=== PATIENT | male | born 2000 | race American Indian/Alaskan Native ===

== ENCOUNTER 2020-12-05 14:29 | Emergency (ER) | payer SELFPAY ==
--- NOTE | 2020-12-05 19:15 | Emergency Department Report ---
ED General Adult HPI - General Chief complaint: Psych Stated complaint: CARLY EVAL Time Seen by Provider: 12/05/20 16:02 Source: EMS Mode of arrival: Stretcher Limitations: No Limitations - History of Present Illness Initial comments: The patient presents to the emergency department via EMS for a psychotic episode. Patient [place] talking to himself and became combative when approached by EMS. Patient was cooperative with coming to the hospital via EMS thus the patient was given 5 mg of Versed, 50 mg Benadryl, and 5 mg of Haldol. Per the patient's father the patient has had multiple episodes similar to this in the past especially within the last 8 to 12 months. -: unknown Severity scale (0 -10): 0 Consistency: constant Improves with: none Worsens with: none Associated Symptoms: denies other symptoms Treatments Prior to Arrival: none - Related Data Allergies Allergy/AdvReac Type Severity Reaction Status Date / Time No Known Allergies Allergy Unverified 12/05/20 15:00 ED Review of Systems ROS: Stated complaint: MH EVAL Other details as noted in HPI Comment: All other systems reviewed and negative Constitutional: denies: chills, fever Eyes: denies: eye pain, eye discharge, vision change ENT: denies: ear pain, throat pain Respiratory: denies: cough, shortness of breath, wheezing Cardiovascular: denies: chest pain, palpitations Endocrine: no symptoms reported Gastrointestinal: denies: abdominal pain, nausea, diarrhea Genitourinary: denies: urgency, dysuria Musculoskeletal: denies: back pain, joint swelling, arthralgia Skin: denies: rash, lesions Neurological: denies: headache, weakness, paresthesias Psychiatric: denies: anxiety, depression Hematological/Lymphatic: denies: easy bleeding, easy bruising ED Past Medical Hx - Past Medical History Previous Medical History?: No - Surgical History Past Surgical History?: No - Social History Smoking Status: Unknown if ever smoked ED Physical Exam - General Limitations: No Limitations General appearance: alert, in no apparent distress - Head Head exam: Present: atraumatic, normocephalic - Eye Eye exam: Present: normal appearance, PERRL, EOMI - ENT ENT exam: Present: mucous membranes moist - Neck Neck exam: Present: normal inspection - Respiratory Respiratory exam: Present: normal lung sounds bilaterally. Absent: respiratory distress - Cardiovascular Cardiovascular Exam: Present: regular rate, normal rhythm. Absent: systolic murmur, diastolic murmur, rubs, gallop - GI/Abdominal GI/Abdominal exam: Present: soft, normal bowel sounds - Rectal Rectal exam: Present: deferred - Extremities Exam Extremities exam: Present: normal inspection - Back Exam Back exam: Present: normal inspection - Neurological Exam Neurological exam: Present: alert, oriented X3, CN II-XII intact. Absent: motor sensory deficit - Psychiatric Psychiatric exam: Present: other (Patient is sedated via medications but upon sternal rub he wakes up and is nonsensical with his speech) - Skin Skin exam: Present: warm, dry, intact, normal color. Absent: rash ED Course Vital Signs 12/05/20 12/05/20 12/05/20 14:30 16:00 16:57 Temperature 98.6 F Pulse Rate 96 H Respiratory 18 Rate Blood Pressure 125/64 Blood Pressure [Right] O2 Sat by Pulse 100 99 77 L Oximetry 12/05/20 12/05/20 16:59 19:00 Temperature 98.3 F Pulse Rate 105 H Respiratory 18 Rate Blood Pressure 127/57 Blood Pressure 140/77 [Right] O2 Sat by Pulse 99 100 Oximetry ED Medical Decision Making - Lab Data Result diagrams: 12/05/20 18:26 12/05/20 18:26 Lab Results 12/05/20 12/05/20 12/05/20 Range/Units 18:26 18:26 18:26 WBC 7.8 (4.5-11.0) K/mm3 RBC 5.05 H (3.65-5.03) M/mm3 Hgb 14.6 (11.8-15.2) gm/dl Hct 43.7 (35.5-45.6) % MCV 87 (84-94) fl MCH 29 (28-32) pg MCHC 33 (32-34) % RDW 14.0 (13.2-15.2) % Plt Count 199 (140-440) K/mm3 Lymph % (Auto) 13.2 L (13.4-35.0) % [place] % (Auto) 8.5 H (0.0-7.3) % Eos % (Auto) 0.1 (0.0-4.3) % Baso % (Auto) 0.3 (0.0-1.8) % Lymph # (Auto) 1.0 L (1.2-5.4) K/mm3 [place] # (Auto) 0.7 (0.0-0.8) K/mm3 Eos # (Auto) 0.0 (0.0-0.4) K/mm3 Baso # (Auto) 0.0 (0.0-0.1) K/mm3 Seg Neutrophils % 77.9 H (40.0-70.0) % Seg Neutrophils # 6.1 (1.8-7.7) K/mm3 Sodium 137 (137-145) mmol/L Potassium 4.6 (3.6-5.0) mmol/L Chloride 99.3 (98-107) mmol/L Carbon Dioxide 21 L (22-30) mmol/L Anion Gap 21 mmol/L BUN 21 H (9-20) mg/dL Creatinine 1.4 H (0.8-1.3) mg/dL Estimated GFR > 60 ml/min BUN/Creatinine Ratio 15 % Glucose 59 L (75-100) mg/dL Calcium 9.2 (8.4-10.2) mg/dL Total Bilirubin 0.70 (0.1-1.2) mg/dL AST 106 H (5-40) units/L ALT 53 (7-56) units/L Alkaline Phosphatase 58 (35-129) units/L Total Protein 7.5 (6.3-8.2) g/dL Albumin 4.8 (3.9-5) g/dL Albumin/Globulin Ratio 1.8 % Salicylates < 0.3 L (2.8-20.0) mg/dL Acetaminophen (10.0-30.0) ug/mL Plasma/Serum Alcohol (0-0.07) % 12/05/20 12/05/20 Range/Units 18:26 18:26 WBC (4.5-11.0) K/mm3 RBC (3.65-5.03) M/mm3 Hgb (11.8-15.2) gm/dl Hct (35.5-45.6) % MCV (84-94) fl MCH (28-32) pg MCHC (32-34) % RDW (13.2-15.2) % Plt Count (140-440) K/mm3 Lymph % (Auto) (13.4-35.0) % [place] % (Auto) (0.0-7.3) % Eos % (Auto) (0.0-4.3) % Baso % (Auto) (0.0-1.8) % Lymph # (Auto) (1.2-5.4) K/mm3 [place] # (Auto) (0.0-0.8) K/mm3 Eos # (Auto) (0.0-0.4) K/mm3 Baso # (Auto) (0.0-0.1) K/mm3 Seg Neutrophils % (40.0-70.0) % Seg Neutrophils # (1.8-7.7) K/mm3 Sodium (137-145) mmol/L Potassium (3.6-5.0) mmol/L Chloride (98-107) mmol/L Carbon Dioxide (22-30) mmol/L Anion Gap mmol/L BUN (9-20) mg/dL Creatinine (0.8-1.3) mg/dL Estimated GFR ml/min BUN/Creatinine Ratio % Glucose (75-100) mg/dL Calcium (8.4-10.2) mg/dL Total Bilirubin (0.1-1.2) mg/dL AST (5-40) units/L ALT (7-56) units/L Alkaline Phosphatase (35-129) units/L Total Protein (6.3-8.2) g/dL Albumin (3.9-5) g/dL Albumin/Globulin Ratio % Salicylates (2.8-20.0) mg/dL Acetaminophen 5.0 L (10.0-30.0) ug/mL Plasma/Serum Alcohol < 0.01 (0-0.07) % - Medical Decision Making 1013 applied Awaiting mental health evaluation Awaiting urinalysis for medical clearance Awaiting placement Critical care attestation.: If time is entered above; I have spent that time in minutes in the direct care of this critically ill patient, excluding procedure time. ED Disposition Clinical Impression: Psychosis Disposition: DC/TX-65 PSY HOSP/PSY UNIT Is pt being admited?: No Does the pt Need Aspirin: No Condition: Stable Referrals: PRIMARY CARE, [Primary Care Provider] - 3-5 Days
[2020-12-05 19:16] LABS: Alanine Aminotransferase 53 units/L (7-56); Albumin 4.8 g/dL (3.9-5); BUN/Creatinine Ratio 15; Blood Urea Nitrogen 21 mg/dL (9-20); Calcium 9.2 mg/dL (8.4-10.2); Hemolysis Index 2
[2020-12-05 19:35] LABS: Basophils % (Auto) 0.3 % (0.0-1.8); Eosinophils % (Auto) 0.1 % (0.0-4.3); Hematocrit 43.7 % (35.5-45.6); Hemoglobin 14.6 gm/dl (11.8-15.2); Lymphocytes % (Auto) 13.2 % (13.4-35.0); Mean Corpuscular HGB Conc 33 % (32-34); Mean Corpuscular Volume 87 fl (84-94); Monocytes # (Auto) 0.7 K/mm3 (0.0-0.8); Monocytes % (Auto) 8.5 % (0.0-7.3); Platelet Count 199 K/mm3 (140-440); Red Blood Count 5.05 M/mm3 (3.65-5.03)
[2020-12-05 22:58] LABS: Amphetamine Screen,Urine PRESUMPTIVE NEGATIVE; Benzodiazepines Screen,Urine PRESUMPTIVE POSITIVE; Cannabinoid Screen,Urine PRESUMPTIVE POSITIVE; Cocaine Screen,Urine PRESUMPTIVE NEGATIVE; Methadone Screen,Urine PRESUMPTIVE NEGATIVE; Opiate Screen,Urine PRESUMPTIVE NEGATIVE
[2020-12-05 22:59] LABS: Bilirubin,Urine NEG (Negative); Blood,Urine SM (Negative); Color,Urine Yellow (Yellow); Mucus,Urine 3+ /HPF; Urobilinogen,Urine < 2.0 mg/dL (<2.0)
--- NOTE | 2020-12-06 11:39 | Consultation ---
History of Present Illness - Reason for Consult Consult date: 12/06/20 Reason for consult: mental health evaluation - History of Present Psychiatric Illness ED Note: The patient presents to the emergency department via EMS for a psychotic episode. Patient was [place] talking to himself and became combative when approached by EMS. Patient was cooperative with coming to the hospital via EMS thus the patient was given 5 mg of Versed, 50 mg Benadryl, and 5 mg of Haldol. Per the patient's father the patient has had multiple episodes similar to this in the past especially within the last 8 to 12 months. Lukasz Pedroza is a 20 year old male with a history of psychosis and Schizophrenia. In my interview with the patient, he reports that was on his way to take his GED when he started talking and had a nervous breakdown.The patient reports recent stressor such as relationship issues. The patient presents with thought blocking, and paranoia, he was unable to state he was on any psychotropic medications. The patient endorse auditory/ visual hallucinations stating " I see dark figure of human and the voices are telling me to hurt myself and run." Diagnoses: schizophrenia, Psychosis Suicide attempts or Self-harm behavior:Denies Prior psychiatric hospitalizations: Yes Substance Abuse history: Denies Previous psychiatric medications tried: Unknown Outpatient treatment: Denies PAST MEDICAL HISTORY: None reported Family Psychiatric History: None reported or documented SOCIAL HISTORY Marital Status: single Living Arrangements: with room mate Employment Status: unemployed Access to guns/weapons: Denies Education: 11th grade History of Abuse: none reported Legal History: none reported REVIEW OF SYSTEMS Constitutional: Negative for weight loss ENT: Negative for stridor Respiratory: Negative for cough or hemoptysis All other systems reviewed and are negative MENTAL STATUS EXAMINATION General Appearance and Behavior: Age appropriate, good hygiene, wearing appropriate clothes, cooperative, cooperative Cooperation: Participating/engaged Psychomotor Behavior: normal Mood: OK Affect and affective range: congruent with stated mood Thought Process: logical Thought Content: Not SI Speech: Normal volume, Regular rate and rhythm Suicidal Ideation: Denies Homicidal Ideation: Denies Hallucinations:Yes Delusions: None elicited Impulse Control: impaired Insight and Judgment: limited insight and judgment, Memory: normal Attention: Normal Orientation: Alert, oriented Assessment and Plan (1) Acute Psychosis Current Visit: Yes Status: Acute Treatment Plan Continue 1013 Start Zyprexa 10mg po daily Sitter: Per primary Medical: Per primary Disposition: Recommend acute psychiatric inpatient treatment Will follow. Thanks Case staffed with Dr. Evans Medications and Allergies Allergies Allergy/AdvReac Type Severity Reaction Status Date / Time No Known Allergies Allergy Unverified 12/05/20 15:00 Mental Status Exam - Vital signs Last Vital Signs Temp 98 F 12/06/20 05:49 Pulse 63 12/06/20 05:49 Resp 18 12/06/20 05:49 BP 97/52 12/06/20 05:49 Pulse Ox 99 12/06/20 05:49 Results Result Diagrams: 12/05/20 18:26 12/05/20 18:26 Abnormal lab results 12/05/20 12/05/20 12/05/20 Range/Units 18:26 18:26 18:26 RBC 5.05 H (3.65-5.03) M/mm3 Lymph % (Auto) 13.2 L (13.4-35.0) % [place] % (Auto) 8.5 H (0.0-7.3) % Lymph # (Auto) 1.0 L (1.2-5.4) K/mm3 Seg Neutrophils % 77.9 H (40.0-70.0) % Carbon Dioxide 21 L (22-30) mmol/L BUN 21 H (9-20) mg/dL Creatinine 1.4 H (0.8-1.3) mg/dL Glucose 59 L (75-100) mg/dL AST 106 H (5-40) units/L Urine WBC (Auto) (0.0-6.0) /HPF Salicylates < 0.3 L (2.8-20.0) mg/dL Acetaminophen (10.0-30.0) ug/mL 12/05/20 12/05/20 Range/Units 18:26 Unknown RBC (3.65-5.03) M/mm3 Lymph % (Auto) (13.4-35.0) % [place] % (Auto) (0.0-7.3) % Lymph # (Auto) (1.2-5.4) K/mm3 Seg Neutrophils % (40.0-70.0) % Carbon Dioxide (22-30) mmol/L BUN (9-20) mg/dL Creatinine (0.8-1.3) mg/dL Glucose (75-100) mg/dL AST (5-40) units/L Urine WBC (Auto) 10.0 H (0.0-6.0) /HPF Salicylates (2.8-20.0) mg/dL Acetaminophen 5.0 L (10.0-30.0) ug/mL All other labs normal.
[2020-12-07 09:31] VITALS: BP 117/67
--- NOTE | 2020-12-07 10:22 | Progress Note ---
Subjective Date of service: 12/07/20 Subjective Comment: The patient was seen this morning, he reports doing well. He reports sleep and appetite as good. He denies any current suicidal ideation and denies hallucinations. REVIEW OF SYSTEMS Constitutional: Negative for weight loss ENT: Negative for stridor Respiratory: Negative for cough or hemoptysis All other systems reviewed and are negative MENTAL STATUS EXAMINATION General Appearance and Behavior: Age appropriate, good hygiene, wearing appropriate clothes, cooperative, cooperative Cooperation: Participating/engaged Psychomotor Behavior: normal Mood: Ok Affect and affective range: congruent with stated mood Thought Process: Not suicidal Thought Content:Goal directed Speech: Normal volume, Regular rate and rhythm Suicidal Ideation: Denies Homicidal Ideation: Denies Hallucinations: Denies Delusions: None elicited Impulse Control: good Insight and Judgment: Limited insight and judgment, Memory: normal Attention: Normal Orientation: Alert, oriented Assessment and Plan (1) Acute Psychosis Current Visit: Yes Status: Acute Treatment Plan Sitter: Per primary Medical: Per primary Disposition:Do not recommend acute psychiatric inpatient treatment. The patient understands that is suicidal/homicidal ideation or any endangering thoughts/ behaviors arise, they should immediately seek for emergent assistance including but not limited to crisis hotline and emergency room. The patient will follow up with psychiatric outpatient referral provided by mental health centrifugal chiller technician. Will sign off. Thanks Case staffed with Dr. Evans Medications and Allergies Medications and Allergies Allergies Allergy/AdvReac Type Severity Reaction Status Date / Time No Known Allergies Allergy Unverified 12/05/20 15:00 Active Meds: Active Medications Olanzapine (Olanzapine 10 Mg Tab) 10 mg PO DAILY STEFAN Results - Results Labs/Vitals: Laboratory Last Values WBC 7.8 K/mm3 (4.5-11.0) 12/05/20 18:26 RBC 5.05 M/mm3 (3.65-5.03) H 12/05/20 18:26 Hgb 14.6 gm/dl (11.8-15.2) 12/05/20 18:26 Hct 43.7 % (35.5-45.6) 12/05/20 18:26 MCV 87 fl (84-94) 12/05/20 18:26 MCH 29 pg (28-32) 12/05/20 18:26 MCHC 33 % (32-34) 12/05/20 18:26 RDW 14.0 % (13.2-15.2) 12/05/20 18:26 Plt Count 199 K/mm3 (140-440) 12/05/20 18:26 Lymph % (Auto) 13.2 % (13.4-35.0) L 12/05/20 18:26 [place] % (Auto) 8.5 % (0.0-7.3) H 12/05/20 18:26 Eos % (Auto) 0.1 % (0.0-4.3) 12/05/20 18:26 Baso % (Auto) 0.3 % (0.0-1.8) 12/05/20 18:26 Lymph # (Auto) 1.0 K/mm3 (1.2-5.4) L 12/05/20 18:26 [place] # (Auto) 0.7 K/mm3 (0.0-0.8) 12/05/20 18:26 Eos # (Auto) 0.0 K/mm3 (0.0-0.4) 12/05/20 18:26 Baso # (Auto) 0.0 K/mm3 (0.0-0.1) 12/05/20 18:26 Seg Neutrophils % 77.9 % (40.0-70.0) H 12/05/20 18:26 Seg Neutrophils # 6.1 K/mm3 (1.8-7.7) 12/05/20 18:26 Sodium 137 mmol/L (137-145) 12/05/20 18:26 Potassium 4.6 mmol/L (3.6-5.0) 12/05/20 18:26 Chloride 99.3 mmol/L (98-107) 12/05/20 18:26 Carbon Dioxide 21 mmol/L (22-30) L 12/05/20 18:26 Anion Gap 21 mmol/L 12/05/20 18:26 BUN 21 mg/dL (9-20) H 12/05/20 18:26 Creatinine 1.4 mg/dL (0.8-1.3) H 12/05/20 18:26 Estimated GFR > 60 ml/min 12/05/20 18:26 BUN/Creatinine Ratio 15 % 12/05/20 18:26 Glucose 59 mg/dL (75-100) L 12/05/20 18:26 Calcium 9.2 mg/dL (8.4-10.2) 12/05/20 18:26 Total Bilirubin 0.70 mg/dL (0.1-1.2) 12/05/20 18:26 AST 106 units/L (5-40) H 12/05/20 18:26 ALT 53 units/L (7-56) 12/05/20 18:26 Alkaline Phosphatase 58 units/L (35-129) 12/05/20 18:26 Total Protein 7.5 g/dL (6.3-8.2) 12/05/20 18:26 Albumin 4.8 g/dL (3.9-5) 12/05/20 18:26 Albumin/Globulin Ratio 1.8 % 12/05/20 18:26 Urine Color Yellow (Yellow) 12/05/20 Unknown Urine Turbidity Cloudy (Clear) 12/05/20 Unknown Urine pH 5.0 (5.0-7.0) 12/05/20 Unknown Ur Specific [place] 1.025 (1.003-1.030) 12/05/20 Unknown Urine Protein 30 mg/dl mg/dL (Negative) 12/05/20 Unknown Urine Glucose (UA) Neg mg/dL (Negative) 12/05/20 Unknown Urine Ketones 80 mg/dL (Negative) 12/05/20 Unknown Urine Blood Sm (Negative) 12/05/20 Unknown Urine Nitrite Neg (Negative) 12/05/20 Unknown Urine Bilirubin Neg (Negative) 12/05/20 Unknown Urine Urobilinogen < 2.0 mg/dL (<2.0) 12/05/20 Unknown Ur Leukocyte Esterase Neg (Negative) 12/05/20 Unknown Urine WBC (Auto) 10.0 /HPF (0.0-6.0) H 12/05/20 Unknown Urine RBC (Auto) 15.0 /HPF (0.0-6.0) 12/05/20 Unknown U Epithel Cells (Auto) 1.0 /HPF (0-13.0) 12/05/20 Unknown Urine Mucus 3+ /HPF 12/05/20 Unknown Salicylates < 0.3 mg/dL (2.8-20.0) L 12/05/20 18:26 Urine Opiates Screen Presumptive negative 12/05/20 Unknown Urine Methadone Screen Presumptive negative 12/05/20 Unknown Acetaminophen 5.0 ug/mL (10.0-30.0) L 12/05/20 18:26 Ur Barbiturates Screen Presumptive negative 12/05/20 Unknown Ur Phencyclidine Scrn Presumptive negative 12/05/20 Unknown Ur Amphetamines Screen Presumptive negative 12/05/20 Unknown U Benzodiazepines Scrn Presumptive positive 12/05/20 Unknown Urine Cocaine Screen Presumptive negative 12/05/20 Unknown U Marijuana (THC) Screen Presumptive positive 12/05/20 Unknown Drugs of Abuse Note Disclamer 12/05/20 Unknown Plasma/Serum Alcohol < 0.01 % (0-0.07) 12/05/20 18:26 Last Vital Signs Temp 97.9 F 12/07/20 09:30 Pulse 92 H 12/07/20 09:30 Resp 18 12/07/20 09:30 BP 117/67 12/07/20 09:30 Pulse Ox 100 12/07/20 09:30
--- NOTE | 2020-12-07 10:51 | Event Note ---
Date: 12/07/20 S: No events reported overnight O: Vital Signs - 24 hr 12/06/20 12/06/20 12/06/20 15:23 15:35 20:08 Temperature 98.4 F Pulse Rate 78 66 Respiratory 16 16 Rate Blood Pressure 114/51 107/71 [Right] O2 Sat by Pulse 99 98 95 Oximetry 12/06/20 12/07/20 12/07/20 23:40 02:29 09:30 Temperature 98.0 F 97.9 F Pulse Rate 72 92 H Respiratory 16 18 Rate Blood Pressure 109/67 117/67 [Right] O2 Sat by Pulse 100 100 100 Oximetry 12/07/20 10:36 Temperature Pulse Rate Respiratory Rate Blood Pressure [Right] O2 Sat by Pulse 100 Oximetry A: Psychosis P: Continue 1013, awaiting inpatient psych placement
== END 2020-12-07 13:16 ==
LOC: EEVIPCON 14:29 → ED 14:29
DX: F29 Unspecified psychosis not due to a substance or known physiological condition (principal)
CPT/HCPCS: 36415; 80053; 80307; 80320; 81001; 85025; 87086; G0480